=== PATIENT | female | born 1950 | race Caucasian/White ===

== ENCOUNTER → 2024-01-26 08:20 | Outpatient (REF) | payer MEDICARE, OTHER, SELFPAY ==
[2024-01-26 09:36] LABS: % Basophils 0.9 % (0-2); % Eosinophils 2.7 % (0-6); % Immature Granulocytes 0.4 % (0-0.5); % Lymphocytes 27.9 % (20.5-51.1); % Monocytes 8.3 % (1.7-9.3); % Neutrophils 59.8 % (42.2-75.2); Absolute Basophils 0.1 10^3/uL (0-0.2); Absolute Eosinophils 0.2 10^3/uL (0-0.7); Absolute Lymphocytes 1.5 10^3/uL (1.2-3.4); Absolute Monocytes 0.5 10^3/uL (0.1-0.6); Absolute Neutrophils 3.3 10^3/uL (1.4-6.5); Hematocrit 39.5 % (37.0-47.0); Hemoglobin 14.1 g/dL (12.0-16.0); Mean Corp Hgb Conc. 35.7 g/dL (33.0-37.0); Mean Corpuscular Hgb 30.7 pg (27.0-31.0); Mean Corpuscular Volume 85.9 fL (81.0-99.0); Nucleated Red Blood Cells % 0 %; Red Cell Dist. Width 12.3 % (11.5-14.5); White Blood Cell Count 5.5 10^3/uL (4.8-10.8)
[2024-01-26 10:11] LABS: Platelet Count 133 10^3/uL (130-400)
[2024-01-26 10:12] LABS: Mean Platelet Volume 10.4 fL (7.4-10.4)
[2024-01-26 11:28] LABS: ALT (SGPT) 28 U/L (0-35); AST (SGOT) 39 U/L (14-36); Albumin 4.3 g/dl (3.5-5.0); Alkaline Phosphatase 72 U/L (38-126); Blood Urea Nitrogen 13 mg/dl (7-17); Calcium 9.4 mg/dl (8.4-10.2); Carbon Dioxide 28 mmol/L (22-30); Chloride 103 mmol/L (98-107); Glucose 110 mg/dl (70-99); HDL Cholesterol 54 mg/dl; LDL Cholesterol, Calculated 62 mg/dl; Potassium 3.6 mmol/L (3.5-5.1); Sodium 137 mmol/L (135-145); Total Bilirubin 1.3 mg/dl (0.2-1.3); Total Cholesterol 151 mg/dl (50-199); Total Protein 6.8 g/dl (6.3-8.2); Triglyceride 176 mg/dl (10-149); Very Low Density Lipoprotein 35 mg/dl (0-30); eGFR > 60.00
[2024-01-26 11:59] LABS: TSH Reflex To Free T4 2.71 uIU/ml (0.47-4.68)
== END ==
LOC: REG 08:20
PROVIDERS: ATTENDING PHYSICIAN Internal Medicine
DX: Z12.31 Encounter for screening mammogram for malignant neoplasm of breast (principal); Z00.00 Encounter for general adult medical examination without abnormal findings; E78.00 Pure hypercholesterolemia, unspecified; J45.909 Unspecified asthma, uncomplicated; E78.5 Hyperlipidemia, unspecified; R73.01 Impaired fasting glucose; E03.9 Hypothyroidism, unspecified
CPT/HCPCS: 36415; 80053; 80061; 84443; 85025

== ENCOUNTER 2024-01-26 08:51 | Outpatient (RCR) | payer MEDICARE, OTHER, SELFPAY ==
[2024-01-26 09:15] VITALS: BP 102/69
[2024-01-26] MEDS: XOLAIR 150 MG SC ×2 (09:33)
== END 2024-01-27 08:44 | disposition home or self-care (01) ==
LOC: OID 08:51
PROVIDERS: ATTENDING PHYSICIAN Allergy & Immunology; FAMILY PHYSICIAN Internal Medicine
DX: L50.1 Idiopathic urticaria (principal)
CPT/HCPCS: 96372; J2357

== ENCOUNTER → 2024-01-30 06:32 | Day surgery (SDC) | payer MEDICARE, OTHER, SELFPAY | LOC: GI 06:32 | PROVIDERS: ATTENDING PHYSICIAN Specialist; FAMILY PHYSICIAN Internal Medicine | DX: K20.90 Esophagitis, unspecified without bleeding (principal); K31.A21 Gastric intestinal metaplasia with low grade dysplasia; Z87.19 Personal history of other diseases of the digestive system | CPT/HCPCS: 43239; 88305; 88342 ==

== ENCOUNTER 2024-02-23 08:43 | Outpatient (RCR) | payer MEDICARE, OTHER, SELFPAY ==
[2024-02-23] MEDS: XOLAIR 150 MG SC ×2 (09:15)
[2024-02-23 09:24] VITALS: BP 132/62
== END 2024-02-29 23:59 | disposition home or self-care (01) ==
LOC: OID 08:43
PROVIDERS: ATTENDING PHYSICIAN Allergy & Immunology; FAMILY PHYSICIAN Internal Medicine
DX: L50.1 Idiopathic urticaria (principal)
CPT/HCPCS: 96372; J2357

== ENCOUNTER 2024-03-22 08:47 | Outpatient (RCR) | payer MEDICARE, OTHER, SELFPAY ==
[2024-03-22 09:13] VITALS: BP 114/67
[2024-03-22] MEDS: XOLAIR 150 MG SC ×2 (09:31)
== END 2024-03-23 13:02 | disposition home or self-care (01) ==
LOC: OID 08:47
PROVIDERS: ATTENDING PHYSICIAN Allergy & Immunology; FAMILY PHYSICIAN Internal Medicine
DX: L50.1 Idiopathic urticaria (principal)
CPT/HCPCS: 96372; J2357

== ENCOUNTER 2024-04-20 08:47 | Outpatient (RCR) | payer MEDICARE, OTHER, SELFPAY ==
[2024-04-20] MEDS: XOLAIR 150 MG SC ×2 (09:50→09:51)
== END 2024-04-20 13:35 | disposition home or self-care (01) ==
LOC: OID 08:47
PROVIDERS: ATTENDING PHYSICIAN Allergy & Immunology; FAMILY PHYSICIAN Internal Medicine
DX: L50.1 Idiopathic urticaria (principal)
CPT/HCPCS: 96372; J2357

== ENCOUNTER 2024-05-17 08:19 | Outpatient (RCR) | payer MEDICARE, OTHER, SELFPAY ==
[2024-05-17 08:27] VITALS: BP 115/66
[2024-05-17] MEDS: XOLAIR 150 MG SC ×2 (08:35)
== END 2024-05-18 09:59 | disposition home or self-care (01) ==
LOC: OID 08:19
PROVIDERS: ATTENDING PHYSICIAN Allergy & Immunology; FAMILY PHYSICIAN Internal Medicine; PRIMARYCARE PHYSICIAN Allergy & Immunology
DX: L50.1 Idiopathic urticaria (principal)
CPT/HCPCS: 96372; J2357

== ENCOUNTER 2024-06-14 08:34 | Outpatient (RCR) | payer MEDICARE, OTHER, SELFPAY ==
[2024-06-14] MEDS: XOLAIR 150 MG SC ×2 (08:55)
[2024-06-14 09:04] VITALS: BP 96/62
== END 2024-06-15 08:28 | disposition home or self-care (01) ==
LOC: OID 08:34
PROVIDERS: ATTENDING PHYSICIAN Allergy & Immunology; FAMILY PHYSICIAN Internal Medicine; PRIMARYCARE PHYSICIAN Allergy & Immunology
DX: L50.1 Idiopathic urticaria (principal)
CPT/HCPCS: 96372; J2357

== ENCOUNTER 2024-07-13 09:08 | Outpatient (RCR) | payer MEDICARE, OTHER, SELFPAY ==
[2024-07-13 09:41] VITALS: BP 117/63
[2024-07-13] MEDS: XOLAIR 150 MG SC ×2 (09:45→09:46)
== END 2024-07-14 08:55 | disposition home or self-care (01) ==
LOC: OID 09:08
PROVIDERS: ATTENDING PHYSICIAN Allergy & Immunology; FAMILY PHYSICIAN Internal Medicine; PRIMARYCARE PHYSICIAN Allergy & Immunology
DX: L50.1 Idiopathic urticaria (principal)
CPT/HCPCS: 96372; J2357

== ENCOUNTER 2024-08-10 09:07 | Outpatient (RCR) | payer MEDICARE, OTHER, SELFPAY ==
[2024-08-10 09:05] VITALS: BP 112/62
[2024-08-10] MEDS: XOLAIR 150 MG SC ×2 (09:19)
== END 2024-08-11 08:56 | disposition home or self-care (01) ==
LOC: OID 09:07
PROVIDERS: ATTENDING PHYSICIAN Allergy & Immunology; FAMILY PHYSICIAN Internal Medicine; PRIMARYCARE PHYSICIAN Allergy & Immunology
DX: L50.1 Idiopathic urticaria (principal)
CPT/HCPCS: 96372; J2357

== ENCOUNTER 2024-09-07 09:04 | Outpatient (RCR) | payer MEDICARE, OTHER, SELFPAY ==
[2024-09-07 09:27] VITALS: BP 112/71
[2024-09-07] MEDS: XOLAIR 150 MG SC ×2 (09:44→09:45)
== END 2024-09-08 09:24 | disposition home or self-care (01) ==
LOC: OID 09:04
PROVIDERS: ATTENDING PHYSICIAN Allergy & Immunology; FAMILY PHYSICIAN Internal Medicine; PRIMARYCARE PHYSICIAN Allergy & Immunology
DX: L50.1 Idiopathic urticaria (principal)
CPT/HCPCS: 96372; J2357

== ENCOUNTER 2024-10-05 08:56 | Outpatient (RCR) | payer MEDICARE, OTHER, SELFPAY ==
[2024-10-05 09:20] VITALS: BP 109/65
[2024-10-05] MEDS: XOLAIR 150 MG SC ×2 (09:36→09:37)
== END 2024-10-05 15:21 | disposition home or self-care (01) ==
LOC: OID 08:56
PROVIDERS: ATTENDING PHYSICIAN Allergy & Immunology; FAMILY PHYSICIAN Internal Medicine; PRIMARYCARE PHYSICIAN Allergy & Immunology
DX: L50.1 Idiopathic urticaria (principal)
CPT/HCPCS: 96372; J2357

== ENCOUNTER 2024-11-30 08:54 | Outpatient (RCR) | payer MEDICARE, OTHER, SELFPAY ==
[2024-11-02 09:21] VITALS: BP 114/58
[2024-11-02] MEDS: XOLAIR 150 MG SC ×2 (09:46→09:47)
[2024-11-30 09:38] VITALS: BP 108/64
[2024-11-30] MEDS: XOLAIR 150 MG SC ×2 (09:48→09:49)
== END 2024-11-30 23:59 | disposition home or self-care (01) ==
LOC: OID 08:54
PROVIDERS: ATTENDING PHYSICIAN Allergy & Immunology; FAMILY PHYSICIAN Internal Medicine; PRIMARYCARE PHYSICIAN Allergy & Immunology
DX: L50.1 Idiopathic urticaria (principal)
CPT/HCPCS: 96372; J2357

== ENCOUNTER → 2024-12-27 07:07 | Outpatient (REF) | payer MEDICARE, OTHER, SELFPAY ==
[2024-12-27 08:16] LABS: ALT (SGPT) 23 U/L (0-35); AST (SGOT) 31 U/L (14-36); Albumin 4.4 g/dl (3.5-5.0); Alkaline Phosphatase 69 U/L (38-126); Blood Urea Nitrogen 14 mg/dl (7-17); Calcium 9.7 mg/dl (8.4-10.2); Carbon Dioxide 31 mmol/L (22-30); Chloride 100 mmol/L (98-107); Glucose 103 mg/dl (70-99); Sodium 138 mmol/L (135-145); Total Protein 6.7 g/dl (6.3-8.2); eGFR > 60.00
[2024-12-27 09:38] LABS: Glycohemoglobin (HgbA1c) 5.5 % (4.0-5.6)
== END ==
LOC: REG 07:07
PROVIDERS: ATTENDING PHYSICIAN Internal Medicine
DX: R79.89 Other specified abnormal findings of blood chemistry (principal); R73.9 Hyperglycemia, unspecified
CPT/HCPCS: 36415; 80053; 83036

== ENCOUNTER 2024-12-28 13:10 | Outpatient (RCR) | payer MEDICARE, OTHER, SELFPAY ==
[2024-12-28 13:41] VITALS: BP 109/59
[2024-12-28] MEDS: XOLAIR 150 MG SC ×2 (13:51→13:52)
== END 2024-12-29 10:20 | disposition home or self-care (01) ==
LOC: OID 13:10
PROVIDERS: ATTENDING PHYSICIAN Allergy & Immunology; FAMILY PHYSICIAN Internal Medicine; PRIMARYCARE PHYSICIAN Allergy & Immunology
DX: L50.1 Idiopathic urticaria (principal)
CPT/HCPCS: 96372; J2357

== ENCOUNTER → 2024-12-30 07:06 | Outpatient (REF) | payer MEDICARE, OTHER, SELFPAY ==
[2024-12-30 09:02] LABS: % Basophils 0.8 % (0-2); % Eosinophils 2.7 % (0-6); % Immature Granulocytes 0.3 % (0-0.5); % Lymphocytes 23.6 % (20.5-51.1); % Monocytes 7.8 % (1.7-9.3); % Neutrophils 64.8 % (42.2-75.2); Absolute Basophils 0.1 10^3/uL (0-0.2); Absolute Eosinophils 0.2 10^3/uL (0-0.7); Absolute Lymphocytes 1.5 10^3/uL (1.2-3.4); Absolute Monocytes 0.5 10^3/uL (0.1-0.6); Absolute Neutrophils 4.1 10^3/uL (1.4-6.5); Hematocrit 43.1 % (37.0-47.0); Hemoglobin 14.5 g/dL (12.0-16.0); Mean Corp Hgb Conc. 33.6 g/dL (33.0-37.0); Mean Corpuscular Hgb 28.8 pg (27.0-31.0); Mean Corpuscular Volume 85.7 fL (81.0-99.0); Mean Platelet Volume 10.6 fL (7.4-10.4); Nucleated Red Blood Cells % 0 %; Platelet Count 101 10^3/uL (130-400); Red Blood Cell Count 5.03 10^6/uL (4.20-5.40); Red Cell Dist. Width 12.7 % (11.5-14.5); White Blood Cell Count 6.3 10^3/uL (4.8-10.8)
[2024-12-30 11:27] LABS: HDL Cholesterol 58 mg/dl; LDL Cholesterol, Calculated 69 mg/dl; TSH Reflex To Free T4 2.84 uIU/ml (0.47-4.68); Total Cholesterol 154 mg/dl (50-199); Triglyceride 135 mg/dl (10-149); Very Low Density Lipoprotein 27 mg/dl (0-30)
== END ==
LOC: WDC 07:06
PROVIDERS: ATTENDING PHYSICIAN Internal Medicine
DX: Z12.31 Encounter for screening mammogram for malignant neoplasm of breast (principal); E78.5 Hyperlipidemia, unspecified; Z23 Encounter for immunization; D69.3 Immune thrombocytopenic purpura; J45.909 Unspecified asthma, uncomplicated; R73.01 Impaired fasting glucose; K22.70 Barrett's esophagus without dysplasia; L50.8 Other urticaria; I44.4 Left anterior fascicular block; I34.1 Nonrheumatic mitral (valve) prolapse; I45.4 Nonspecific intraventricular block
CPT/HCPCS: 36415; 77063; 77067; 80061; 84443; 85025

== ENCOUNTER → 2025-01-24 14:24 | Outpatient (REF) | payer MEDICARE, OTHER, SELFPAY ==
[2025-01-24 10:23] LABS: % Basophils 0.8 % (0-2); % Eosinophils 2.9 % (0-6); % Immature Granulocytes 0.3 % (0-0.5); % Lymphocytes 25.2 % (20.5-51.1); % Monocytes 7.5 % (1.7-9.3); % Neutrophils 63.3 % (42.2-75.2); Absolute Basophils 0.1 10^3/uL (0-0.2); Absolute Eosinophils 0.2 10^3/uL (0-0.7); Absolute Lymphocytes 1.9 10^3/uL (1.2-3.4); Absolute Monocytes 0.6 10^3/uL (0.1-0.6); Absolute Neutrophils 4.6 10^3/uL (1.4-6.5); Hematocrit 42.1 % (37.0-47.0); Hemoglobin 14.3 g/dL (12.0-16.0); Mean Corpuscular Hgb 28.9 pg (27.0-31.0); Mean Corpuscular Volume 85.1 fL (81.0-99.0); Mean Platelet Volume 10.2 fL (7.4-10.4); Nucleated Red Blood Cells % 0 %; Platelet Count 109 10^3/uL (130-400); Red Blood Cell Count 4.95 10^6/uL (4.20-5.40); Red Cell Dist. Width 12.7 % (11.5-14.5); White Blood Cell Count 7.3 10^3/uL (4.8-10.8)
== END ==
LOC: RAD 14:24
PROVIDERS: Internal Medicine Hematology & Oncology; ATTENDING PHYSICIAN Internal Medicine
DX: Z78.0 Asymptomatic menopausal state (principal); E78.5 Hyperlipidemia, unspecified
CPT/HCPCS: 36415; 77080; 85025

== ENCOUNTER 2025-01-25 12:48 | Outpatient (RCR) | payer MEDICARE, OTHER, SELFPAY ==
[2025-01-25 13:08] VITALS: BP 114/59
[2025-01-25] MEDS: XOLAIR 150 MG SC ×2 (13:16)
== END 2025-01-28 23:59 | disposition home or self-care (01) ==
LOC: OID 12:48
PROVIDERS: ATTENDING PHYSICIAN Allergy & Immunology; FAMILY PHYSICIAN Internal Medicine; PRIMARYCARE PHYSICIAN Allergy & Immunology
DX: L50.1 Idiopathic urticaria (principal)
CPT/HCPCS: 96372; J2357

== ENCOUNTER → 2025-02-09 08:52 | Outpatient (REF) | payer MEDICARE, OTHER, SELFPAY | LOC: RCS 08:52 | PROVIDERS: ATTENDING PHYSICIAN Internal Medicine Cardiovascular Disease; FAMILY PHYSICIAN Internal Medicine | DX: R00.1 Bradycardia, unspecified (principal); I44.7 Left bundle-branch block, unspecified; I34.0 Nonrheumatic mitral (valve) insufficiency | CPT/HCPCS: 93306 ==

== ENCOUNTER 2025-02-22 11:17 | Outpatient (RCR) | payer MEDICARE, OTHER, SELFPAY ==
[2025-02-22 11:25] VITALS: BP 108/60
[2025-02-22] MEDS: XOLAIR 150 MG SC ×2 (11:29→11:30)
== END 2025-02-23 08:36 | disposition home or self-care (01) ==
LOC: OID 11:17
PROVIDERS: ATTENDING PHYSICIAN Allergy & Immunology; FAMILY PHYSICIAN Internal Medicine; PRIMARYCARE PHYSICIAN Allergy & Immunology
DX: L50.1 Idiopathic urticaria (principal)
CPT/HCPCS: 96372; J2357

== ENCOUNTER 2025-03-22 11:27 | Outpatient (RCR) | payer MEDICARE, OTHER, SELFPAY ==
[2025-03-22 11:35] VITALS: BP 112/66
[2025-03-22] MEDS: XOLAIR 150 MG SC ×2 (11:44)
== END 2025-03-23 09:29 | disposition home or self-care (01) ==
LOC: OID 11:27
PROVIDERS: ATTENDING PHYSICIAN Allergy & Immunology; FAMILY PHYSICIAN Internal Medicine; PRIMARYCARE PHYSICIAN Allergy & Immunology
DX: L50.1 Idiopathic urticaria (principal)
CPT/HCPCS: 96372; J2357

== ENCOUNTER → 2025-03-29 08:11 | Outpatient (REF) | payer MEDICARE, OTHER, SELFPAY ==
[2025-03-29 09:17] LABS: % Eosinophils 3.2 % (0-6); % Immature Granulocytes 0.2 % (0-0.5); % Lymphocytes 27.6 % (20.5-51.1); % Monocytes 7.9 % (1.7-9.3); % Neutrophils 60.1 % (42.2-75.2); Absolute Basophils 0.1 10^3/uL (0-0.2); Absolute Eosinophils 0.2 10^3/uL (0-0.7); Absolute Lymphocytes 1.7 10^3/uL (1.2-3.4); Absolute Monocytes 0.5 10^3/uL (0.1-0.6); Absolute Neutrophils 3.7 10^3/uL (1.4-6.5); Hematocrit 38.9 % (37.0-47.0); Hemoglobin 13.5 g/dL (12.0-16.0); Mean Corp Hgb Conc. 34.7 g/dL (33.0-37.0); Mean Corpuscular Hgb 29.4 pg (27.0-31.0); Mean Corpuscular Volume 84.7 fL (81.0-99.0); Nucleated Red Blood Cells % 0 %; Platelet Count 104 10^3/uL (130-400); Red Blood Cell Count 4.59 10^6/uL (4.20-5.40); White Blood Cell Count 6.2 10^3/uL (4.8-10.8)
== END ==
LOC: REG 08:11
PROVIDERS: ATTENDING PHYSICIAN Specialist; FAMILY PHYSICIAN Internal Medicine
DX: D69.3 Immune thrombocytopenic purpura (principal)
CPT/HCPCS: 36415; 85025

== ENCOUNTER 2025-04-06 06:26 | Day surgery (SDC) | payer MEDICARE, OTHER, SELFPAY | END 2025-04-06 11:18 | disposition home or self-care (01) | LOC: GI 06:26 | PROVIDERS: ATTENDING PHYSICIAN Specialist | DX: K29.70 Gastritis, unspecified, without bleeding (principal); K22.89 Other specified disease of esophagus; K31.A21 Gastric intestinal metaplasia with low grade dysplasia; K31.89 Other diseases of stomach and duodenum; J98.01 Acute bronchospasm; R13.10 Dysphagia, unspecified; Z87.19 Personal history of other diseases of the digestive system | CPT/HCPCS: 43239; 88305; 88342 ==

== ENCOUNTER 2025-04-19 12:49 | Outpatient (RCR) | payer MEDICARE, OTHER, SELFPAY ==
[2025-04-19 12:58] VITALS: BP 119/76
[2025-04-19] MEDS: XOLAIR 150 MG SC ×2 (13:08)
== END 2025-04-20 10:59 | disposition home or self-care (01) ==
LOC: OID 12:49
PROVIDERS: ATTENDING PHYSICIAN Allergy & Immunology; FAMILY PHYSICIAN Internal Medicine; PRIMARYCARE PHYSICIAN Allergy & Immunology
DX: L50.1 Idiopathic urticaria (principal); J45.30 Mild persistent asthma, uncomplicated
CPT/HCPCS: 96372; J2357

== ENCOUNTER → 2025-05-03 10:06 | Outpatient (REF) | payer MEDICARE, OTHER, SELFPAY ==
[2025-05-03 10:54] LABS: % Basophils 0.7 % (0-2); % Eosinophils 2.6 % (0-6); % Immature Granulocytes 1.6 % (0-0.5); % Lymphocytes 25.5 % (20.5-51.1); % Monocytes 8.3 % (1.7-9.3); % Neutrophils 61.3 % (42.2-75.2); Absolute Basophils 0.1 10^3/uL (0-0.2); Absolute Eosinophils 0.2 10^3/uL (0-0.7); Absolute Immature Granulocytes 0.1 10^3/uL (0-0.05); Absolute Lymphocytes 1.8 10^3/uL (1.2-3.4); Absolute Monocytes 0.6 10^3/uL (0.1-0.6); Absolute Neutrophils 4.3 10^3/uL (1.4-6.5); Hematocrit 41.1 % (37.0-47.0); Hemoglobin 14.1 g/dL (12.0-16.0); Mean Corp Hgb Conc. 34.3 g/dL (33.0-37.0); Mean Corpuscular Hgb 29.4 pg (27.0-31.0); Mean Corpuscular Volume 85.6 fL (81.0-99.0); Nucleated Red Blood Cells % 0 %; Platelet Count 100 10^3/uL (130-400); Red Cell Dist. Width 12.8 % (11.5-14.5)
== END ==
LOC: REG 10:06
PROVIDERS: ATTENDING PHYSICIAN Specialist; FAMILY PHYSICIAN Internal Medicine; REFERRING PHYSICIAN Internal Medicine Hematology & Oncology
DX: D69.3 Immune thrombocytopenic purpura (principal)
CPT/HCPCS: 36415; 85025

== ENCOUNTER 2025-05-17 12:52 | Outpatient (RCR) | payer MEDICARE, OTHER, SELFPAY ==
[2025-05-17 13:13] VITALS: BP 109/62
[2025-05-17] MEDS: XOLAIR 150 MG SC ×2 (13:25→13:26)
== END 2025-05-18 11:29 | disposition home or self-care (01) ==
LOC: OID 12:52
PROVIDERS: ATTENDING PHYSICIAN Allergy & Immunology; FAMILY PHYSICIAN Internal Medicine; PRIMARYCARE PHYSICIAN Allergy & Immunology
DX: L50.1 Idiopathic urticaria (principal)
CPT/HCPCS: 96372; J2357

== ENCOUNTER → 2025-06-14 08:26 | Outpatient (REF) | payer MEDICARE, OTHER, SELFPAY ==
[2025-06-14 09:07] LABS: Hematocrit 41.2 % (37.0-47.0); Hemoglobin 13.9 g/dL (12.0-16.0); Mean Corp Hgb Conc. 33.7 g/dL (33.0-37.0); Mean Corpuscular Volume 86.2 fL (81.0-99.0); Red Cell Dist. Width 12.8 % (11.5-14.5)
[2025-06-14 09:59] LABS: Platelet Count 83 10^3/uL (130-400)
== END ==
LOC: REG 08:26
PROVIDERS: ATTENDING PHYSICIAN Specialist; FAMILY PHYSICIAN Internal Medicine; REFERRING PHYSICIAN Internal Medicine Hematology & Oncology
DX: D69.3 Immune thrombocytopenic purpura (principal)
CPT/HCPCS: 36415; 85027

== ENCOUNTER 2025-06-14 12:50 | Outpatient (RCR) | payer MEDICARE, OTHER, SELFPAY ==
[2025-06-14 13:14] VITALS: BP 112/72
[2025-06-14] MEDS: XOLAIR 150 MG SC ×2 (13:25→13:27)
== END 2025-06-15 08:48 | disposition home or self-care (01) ==
LOC: OID 12:50
PROVIDERS: ATTENDING PHYSICIAN Allergy & Immunology; FAMILY PHYSICIAN Internal Medicine; PRIMARYCARE PHYSICIAN Allergy & Immunology
DX: L50.1 Idiopathic urticaria (principal)
CPT/HCPCS: 96372; J2357

== ENCOUNTER 2025-06-16 06:16 | Day surgery (SDC) | payer MEDICARE, OTHER, SELFPAY ==
[2025-06-16 07:33] VITALS: BP 118/74
[2025-06-16 07:44] VITALS: BMI 25.4
[2025-06-16 07:52] VITALS: BMI 25.4
[2025-06-16 08:54] VITALS: BP 112/73
[2025-06-16 09:00] VITALS: BP 116/72
[2025-06-16 09:15] VITALS: BP 116/86
[2025-06-16 09:30] VITALS: BP 126/74
[2025-06-16 09:45] VITALS: BP 130/73
== END 2025-06-16 10:00 | disposition home or self-care (01) ==
LOC: SDS 06:16
PROVIDERS: ATTENDING PHYSICIAN Internal Medicine Gastroenterology
DX: K31.A21 Gastric intestinal metaplasia with low grade dysplasia (principal); D13.1 Benign neoplasm of stomach; K31.89 Other diseases of stomach and duodenum
CPT/HCPCS: 43251; 88305

== ENCOUNTER 2025-07-12 12:57 | Outpatient (RCR) | payer MEDICARE, OTHER, SELFPAY ==
[2025-07-12 13:08] VITALS: BP 107/65
[2025-07-12] MEDS: XOLAIR 150 MG SC ×2 (13:23)
== END 2025-07-31 23:59 | disposition home or self-care (01) ==
LOC: OID 12:57
PROVIDERS: ATTENDING PHYSICIAN Allergy & Immunology; FAMILY PHYSICIAN Internal Medicine; PRIMARYCARE PHYSICIAN Allergy & Immunology
DX: L50.1 Idiopathic urticaria (principal)
CPT/HCPCS: 96372; J2357

== ENCOUNTER → 2025-08-04 17:45 | Outpatient (REF) | payer MEDICARE, OTHER, SELFPAY | LOC: CLAB 17:45 | PROVIDERS: ATTENDING PHYSICIAN Nurse Practitioner Adult Health | DX: R39.9 Unspecified symptoms and signs involving the genitourinary system (principal) | CPT/HCPCS: 87077; 87086; 87186 ==

== ENCOUNTER 2025-08-09 09:00 | Outpatient (RCR) | payer MEDICARE, OTHER, SELFPAY ==
[2025-08-09] MEDS: XOLAIR 150 MG SC ×2 (09:14→09:18)
[2025-08-09 09:33] VITALS: BP 120/68
== END 2025-08-09 14:12 | disposition home or self-care (01) ==
LOC: OID 09:00
PROVIDERS: ATTENDING PHYSICIAN Allergy & Immunology; FAMILY PHYSICIAN Internal Medicine; PRIMARYCARE PHYSICIAN Allergy & Immunology
DX: L50.1 Idiopathic urticaria (principal)
CPT/HCPCS: 96372; J2357

== ENCOUNTER 2025-09-06 12:54 | Outpatient (RCR) | payer MEDICARE, OTHER, SELFPAY ==
[2025-09-06 13:10] VITALS: BP 118/69
[2025-09-06] MEDS: XOLAIR 150 MG SC ×2 (13:39→13:40)
== END 2025-09-07 10:48 | disposition home or self-care (01) ==
LOC: OID 12:54
PROVIDERS: ATTENDING PHYSICIAN Allergy & Immunology; FAMILY PHYSICIAN Internal Medicine; PRIMARYCARE PHYSICIAN Allergy & Immunology
DX: L50.1 Idiopathic urticaria (principal)
CPT/HCPCS: 96372; J2357

== ENCOUNTER 2025-10-04 13:24 | Outpatient (RCR) | payer MEDICARE, OTHER, SELFPAY ==
[2025-10-04 13:40] VITALS: BP 110/65
[2025-10-04] MEDS: XOLAIR 150 MG SC ×2 (13:52→13:53)
== END 2025-10-05 09:40 | disposition home or self-care (01) ==
LOC: OID 13:24
PROVIDERS: ATTENDING PHYSICIAN Allergy & Immunology; FAMILY PHYSICIAN Internal Medicine; PRIMARYCARE PHYSICIAN Allergy & Immunology
DX: L50.1 Idiopathic urticaria (principal); D69.3 Immune thrombocytopenic purpura
CPT/HCPCS: 96372; J2357

== ENCOUNTER → 2025-10-20 12:14 | Outpatient (REF) | payer MEDICARE, OTHER, SELFPAY | LOC: HWRCS 12:14 | PROVIDERS: ATTENDING PHYSICIAN Internal Medicine Cardiovascular Disease; FAMILY PHYSICIAN Internal Medicine | DX: R94.31 Abnormal electrocardiogram [ECG] [EKG] (principal) | CPT/HCPCS: 78452; 93017; A9500; J2785 ==

== ENCOUNTER → 2025-11-03 08:29 | Outpatient (REF) | payer MEDICARE, OTHER, SELFPAY | LOC: RCS 08:29 | PROVIDERS: ATTENDING PHYSICIAN Internal Medicine Cardiovascular Disease; FAMILY PHYSICIAN Internal Medicine | DX: R94.31 Abnormal electrocardiogram [ECG] [EKG] (principal) | CPT/HCPCS: 93306 ==

== ENCOUNTER 2025-11-04 08:23 | Outpatient (RCR) | payer MEDICARE, OTHER, SELFPAY ==
[2025-11-04 08:43] VITALS: BP 115/60
[2025-11-04] MEDS: XOLAIR 150 MG SC ×2 (08:54→08:55)
== END 2025-11-07 08:21 | disposition home or self-care (01) ==
LOC: OID 08:23
PROVIDERS: ATTENDING PHYSICIAN Allergy & Immunology; FAMILY PHYSICIAN Internal Medicine; PRIMARYCARE PHYSICIAN Allergy & Immunology
DX: L50.1 Idiopathic urticaria (principal)
CPT/HCPCS: 96372; J2357